=== PATIENT | male | born 1965 | race Caucasian/White ===

== ENCOUNTER 2017-01-13 08:49 | Emergency (ER) | payer OTHER ==
[~2017-01-13] VITALS: Ht 180.3 cm; Wt 99.8 kg
[~2017-01-13 08:49] MED LIST: ALBU17IN2 IN; ASPI1TAB PO; FLOM5CAP PO; LEVA500T OR; NORV5TAB OR; OXYB5TA PO; PRIL20CA OR; SM I100T OR
[2017-01-13] MEDS ORDERED: BENA25CA4 PO (08:56)
[2017-01-13] MEDS ORDERED: ALBU17IN2 INH (08:57)
[2017-01-13] MEDS ORDERED: LEVALBUTEROL 1.25 MG/0.5 ML CONCENTRATE NEB NEB ONE ×2 (09:15→09:45)
[2017-01-13] MEDS ORDERED: ZITHTAB PO (10:35)
[2017-01-13] MEDS ORDERED: MUCI600T34 PO (10:35)
--- NOTE | 2017-01-13 10:35 | REP ---
PA and lateral chest: Comparison is 2015. The lung gama are clear. The cardiac size is normal The brenda, mediastinum, and bony thorax are unremarkable. Impression: Negative PA and lateral chest. There is no interval change Signed by Rachid Carr MD 01/13/2017 10:27 A
[2017-01-13] MEDS ORDERED: ALBU17IN INH (10:41)
[2017-01-13 10:43] VITALS: BP 142/88
[2017-01-13] MEDS ORDERED: PRED20TA PO (10:43)
[2017-01-13] MEDS ORDERED: AZITHROMYCIN 250 MG TAB PO ONE (10:45)
== END 2017-01-13 10:45 | disposition home or self-care (01) ==
LOC: M ED 09:29
DX: J01.90 Acute sinusitis, unspecified (principal); J20.9 Acute bronchitis, unspecified; J45.909 Unspecified asthma, uncomplicated; Z79.82 Long term (current) use of aspirin

== ENCOUNTER 2018-05-09 19:19 | Emergency (ER) | payer OTHER ==
[2018-05-09] MEDS: diazePAM 10 MG TAB PO (20:06)
== END 2018-05-09 20:14 | disposition home or self-care (01) ==
LOC: M ED 19:19
DX: S39.012A Strain of muscle, fascia and tendon of lower back, initial encounter (principal); X58.XXXA Exposure to other specified factors, initial encounter; Y92.89 Other specified places as the place of occurrence of the external cause; J45.909 Unspecified asthma, uncomplicated
CPT/HCPCS: 99282

== ENCOUNTER 2018-08-21 08:54 | Emergency (ER) | payer OTHER ==
[2018-08-21] MEDS: NORCO, ANEXSIA 5/325MG TABLET (HYDROcodone/ACETAMINOPHEN) PO (09:58)
== END 2018-08-21 11:13 | disposition home or self-care (01) ==
LOC: M ED 08:54
DX: M17.11 Unilateral primary osteoarthritis, right knee (principal)
CPT/HCPCS: 73564

== ENCOUNTER 2018-09-29 12:11 | Emergency (ER) | payer OTHER ==
[2018-09-29] MEDS: NORCO, ANEXSIA 5/325MG TABLET (HYDROcodone/ACETAMINOPHEN) PO (12:44)
[2018-09-29] MEDS: METHOCARBAMOL 500 MG TAB PO (12:44)
== END 2018-09-29 13:12 | disposition home or self-care (01) ==
LOC: M ED 12:11
DX: S39.012A Strain of muscle, fascia and tendon of lower back, initial encounter (principal); M54.31 Sciatica, right side; X58.XXXA Exposure to other specified factors, initial encounter; Y92.89 Other specified places as the place of occurrence of the external cause; J45.909 Unspecified asthma, uncomplicated; Z79.899 Other long term (current) drug therapy
CPT/HCPCS: 99282

== ENCOUNTER → 2018-10-27 | Outpatient (CLI) | payer OTHER ==
[~2018-10-27] MED LIST changes: +ALBU17IN INH; +ALBU17IN2 INH; +BENA25CA4 PO; +CYCL10TA PO; +FLOM0.4C39 PO; -FLOM5CAP PO; +IBUP-1022 PO; +IBUP80TA PO; +MELO7.5T7; +MUCI600T37 PO; +NORCOTAB PO; -OXYB5TA PO; +OXYB5TAB10 PO; +PRED20TA PO; +ROBA500T PO; +ZITHTAB PO
[2018-10-27 09:44] LABS: BASO # 0.1 10^3/uL (0.0-0.2); BASO % 1.3 % (0.0-1.0); EOS # 0.5 10^3/uL (0.0-0.50); EOS % 6.6 % (0.0-3.0); HEMATOCRIT 48.9 % (42.0-52.0); HEMOGLOBIN 16.4 g/dl (13.5-17.5); LYMPH # 2.3 10^3/uL (1.5-4.5); LYMPH % 30.2 % (24.0-44.0); MEAN CORPUSCULAR HEMOGLOBIN 30.4 pg (27.0-33.0); MEAN CORPUSCULAR HGB CONC 33.5 g/dl (32.0-36.5); MEAN CORPUSCULAR VOLUME 90.6 fl (80.0-96.0); MONO # 0.5 10^3/uL (0.0-0.8); MONO % 6.9 % (0.0-5.0); NEUTROPHILS # 4.1 10^3/uL (1.8-7.7); NEUTROPHILS % 54.6 % (36.0-66.0); PLATELET COUNT, AUTOMATED 222 10^3/uL (150-450); WHITE BLOOD COUNT 7.4 10^3/uL (4.0-10.0)
[2018-10-27 10:15] LABS: HEMOGLOBIN A1c 5.8 %
[2018-10-27 10:19] LABS: ALBUMIN 4.2 GM/DL (3.2-5.2); ALT/SGPT 38 U/L (12-78); BILIRUBIN,TOTAL 0.6 MG/DL (0.2-1.0); BLOOD UREA NITROGEN 14 MG/DL (7-18); CALCIUM LEVEL 9.4 MG/DL (8.5-10.1); CARBON DIOXIDE LEVEL 32 MEQ/L (21-32); CHLORIDE LEVEL 107 MEQ/L (98-107); CHOLESTEROL LEVEL 184 MG/DL (<200); CHOLESTEROL RISK RATIO 3.345 (<5); CREATININE FOR GFR 1.15 MG/DL (0.70-1.30); GLOMERULAR FILTRATION RATE > 60.0 (>56); GLUCOSE, FASTING 87 MG/DL (70-100); HDL CHOLESTEROL 55 MG/DL (>40); LDL CHOLESTEROL 115 MG/DL (<100); MAGNESIUM LEVEL 2.3 MG/DL (1.8-2.4); NON-HDL-C 129 MG/DL; POTASSIUM SERUM 4.7 MEQ/L (3.5-5.1); SODIUM LEVEL 142 MEQ/L (136-145); TOTAL 25(OH) VITAMIN D 24.1 NG/ML (30.0-100.0); TRIGLYCERIDES LEVEL 69 MG/DL (<150)
[2018-10-27 10:49] LABS: MALB URINE SIEMENS 7.2 MG/L; MAU/CREAT RATIO 6.7 MCG/MG (0.0-30.0)
--- NOTE | 2018-10-28 02:50 | REP ---
Clinical: Hypertension and chronic medical renal disease. Technique: Flor scale and color Doppler evaluation of the kidneys and renal vasculature using curved array transducer. Findings: The kidneys are essentially normal in contour, size and reniform shape without hydronephrosis, nephrolithiasis, cystic or renal mass lesion. Mildly increased parenchymal echogenicity is consistent with the given history of chronic medical renal disease. Right kidney measures 11.6 x 5.0 x 5.2 cm . Left kidney measures 11.0 x 4.1 x 4.6 cm . Bladder is incompletely distended and grossly normal by current evaluation. Bladder currently measures 7.4 x 7.2 x 7.6 cm (211 ml). Prostate measures 3.1 x 3.0 x 4.6 cm (22 ml). Color Doppler evaluation of the renal vasculature demonstrates normal arterial wave patterns, velocities, renal aortic ratios, resistive indices and the acceleration time. No sonographic evidence for renal arterial stenosis noted. Renal vein is patent. Right Kidney: Peak arterial velocity: 77.1 cm/sec . Renal aortic ratio: 0.95 . Resistive indices: 0.65 - 0.71 . Acceleration times: 0.044 - 0.059 . Left kidney: Peak arterial velocity: 55.8 cm/sec . Renal aortic ratio: 0.68 . Resistive indices: 0.70 - 0.71 . Acceleration times: 0.029 - 0.051 . Impression: 1. Minimally increased parenchymal echogenicity consistent with the given history of chronic medical renal disease. No hydronephrosis. 2. No sonographic evidence to suggest significant renal arterial stenosis. Electronically Signed by Emanuel Krishna MD 10/28/2018 02:41 A
== END ==
LOC: M RAD 08:41
PROVIDERS: ATTEND Nurse Practitioner Family
DX: N18.9 Chronic kidney disease, unspecified (principal)

== ENCOUNTER → 2018-11-23 | Outpatient (CLI) | payer OTHER ==
--- NOTE | 2018-11-23 10:23 | ECGEPIP ---
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
== END ==
LOC: M EKG 09:13
PROVIDERS: ATTEND Orthopaedic Surgery
DX: Z01.818 Encounter for other preprocedural examination (principal); I10 Essential (primary) hypertension; R00.1 Bradycardia, unspecified

== ENCOUNTER → 2018-12-31 | Outpatient (CLI) | payer OTHER ==
--- NOTE | 2018-12-31 17:36 | REP ---
MR LUMBAR SPINE WITHOUT CONTRAST: HISTORY: Degenerative disc disease. Decreased signal intensity on T2-weighted images is present in the L2-3 through L5-S1 intervertebral discs. The discs are decreased in height. These findings are consistent with disc degeneration. There is no disc bulge or herniation at the L1-2 level. The L1 nerves exit the neural foramina without compression. A diffuse disc bulge is present at the L2-3 level. There is hypertrophy of the ligamenta flava and posterior articulating facets. These findings produce minimal central canal stenosis. The L2 nerves exit the neural foramina without compression. A diffuse disc bulge is present at the L3-4 level. There is hypertrophy of the ligamenta flava and posterior articulating facets. These findings produce mild central canal stenosis. The L3 nerves exit the neural foramina without compression. A diffuse disc bulge is present at the L4-5 level. There is hypertrophy of the ligamenta flava and posterior articulating facets. These findings produce minimal central canal stenosis. The L4 nerves exit the neural foramina without compression. A diffuse disc bulge and small central disc protrusion are present at the L5-S1 level. The disc protrusion abuts the thecal sac. There is hypertrophy of the posterior articulating facets. The L5 nerves exit the neural foramina without compression. The conus medullaris is normal in appearance terminating at the level of the L1-2 intervertebral disc. Increased signal intensity on T2-weighted images is present in the endplates of the L1 through S1 vertebral bodies. This represents degenerative change. IMPRESSION: 1. Minimal central canal stenosis at the L2-3 and L4-5 levels secondary to disc bulge, ligamentous and facet hypertrophy. 2. Mild central canal stenosis at the L3-4 level secondary to disc bulge, ligamentous and facet hypertrophy. 3. Diffuse disc bulge and small central disc protrusion at the L5-S1 level. The disc protrusion abuts the thecal sac. Electronically Signed by Steven Henriquez MD 01/03/2019 08:03 A
== END ==
LOC: M PLARAD 13:49
PROVIDERS: ATTEND Nurse Practitioner Family
DX: M51.27 Other intervertebral disc displacement, lumbosacral region (principal); M51.26 Other intervertebral disc displacement, lumbar region; M24.28 Disorder of ligament, vertebrae; M48.061 Spinal stenosis, lumbar region without neurogenic claudication

== ENCOUNTER → 2019-01-13 | Outpatient (REF) | payer OTHER ==
[~2019-01-13] MED LIST changes: -ASPI1TAB PO; +ASPI81TA26 PO; +HYDR-3715 PO; -NORCOTAB PO
[2019-01-13 14:28] LABS: ALBUMIN 4.5 GM/DL (3.2-5.2); ALT/SGPT 47 U/L (12-78); BILIRUBIN,TOTAL 0.5 MG/DL (0.2-1.0); BLOOD UREA NITROGEN 18 MG/DL (7-18); CALCIUM LEVEL 9.1 MG/DL (8.5-10.1); CARBON DIOXIDE LEVEL 26 MEQ/L (21-32); CHLORIDE LEVEL 108 MEQ/L (98-107); CREATININE FOR GFR 1.22 MG/DL (0.70-1.30); GLOMERULAR FILTRATION RATE > 60.0 (>56); GLUCOSE, FASTING 98 MG/DL (70-100); POTASSIUM SERUM 4.8 MEQ/L (3.5-5.1); SODIUM LEVEL 140 MEQ/L (136-145); THYROID STIMULATING HORMONE 0.968 uIU/ML (0.358-3.740); TOTAL PROTEIN 7.2 GM/DL (6.4-8.2); VITAMIN B12 LEVEL 633 PG/ML
[2019-01-15 15:33] LABS: ANTINUCLEAR ANTIBODIES DIRECT Negative (Negative); CERULOPLASMIN 19.1 mg/dL (16.0-31.0); COPPER PLASMA 68 ug/dL (72-166)
== END ==
LOC: M LABNEURO 08:41
PROVIDERS: ATTEND Psychiatry & Neurology Neurology
DX: R25.1 Tremor, unspecified (principal)

== ENCOUNTER 2020-12-02 11:41 | Emergency (ER) | payer OTHER ==
[~2020-12-02] VITALS: Ht 182.9 cm; Wt 105.3 kg
[~2020-12-02 11:41] MED LIST changes: +CYCL-707 PO; -CYCL10TA PO
--- OUTSIDE RECORDS SUMMARY | 2020-12-02 11:47 | CCD ---
Author Author [facility] Organization [facility] Address Unknown Phone Unavailable Care Team Providers Care Glassie Name Role Phone Katelyn Harper Unavailable Unavailable Katelyn Harper Unavailable Unavailable Katelyn Harper Unavailable Unavailable Katelyn Harper Unavailable Unavailable Katelyn Harper Unavailable Unavailable Katelyn Harper PA Unavailable Unavailable Katelyn Harper Unavailable Unavailable Katelyn Harper PA Unavailable Unavailable Katelyn Harper PA Unavailable Unavailable Katelyn Harper PA Unavailable Unavailable Katelyn Harper PA Unavailable Unavailable Katelyn Harper PA Unavailable Unavailable Katelyn Harper PA Unavailable Unavailable Katelyn Harper PA Unavailable Unavailable Katelyn Harper PA Unavailable Unavailable Katelyn Harper PA Unavailable Unavailable Katelyn Harper PA Unavailable Unavailable Katelyn Harper PA Unavailable Unavailable Katelyn Harper Unavailable Unavailable Katelyn Harper Unavailable Unavailable Katelyn Harper PA Unavailable Unavailable Katelyn Harper Unavailable Unavailable Katelyn Harper PA Unavailable Unavailable Katelyn Harper PA Unavailable Unavailable Katelyn Harper Unavailable Unavailable Katelyn Harper Unavailable Unavailable Katelyn Harper Unavailable Unavailable Re-disclosure Warning The records that you are about to access may contain information from federally-assisted alcohol or drug abuse programs. If such information is present, then the following federally mandated warning applies: This information has been disclosed to you from records protected by federal confidentiality rules (42 CFR part 2). The federal rules prohibit you from making any further disclosure of this information unless further disclosure is expressly permitted by the written consent of the person to whom it pertains or as otherwise permitted by 42 CFR part 2. A general authorization for the release of medical or other information is NOT sufficient for this purpose. The Federal rules restrict any use of the information to criminally investigate or prosecute any alcohol or drug abuse patient.The records that you are about to access may contain highly sensitive health information, the redisclosure of which is protected by Article 27-F of the [facility] Public Health law. If you continue you may have access to information: Regarding HIV / AIDS; Provided by facilities licensed or operated by the [facility] Office of Mental Health; or Provided by the [facility] Office for People With Developmental Disabilities. If such information is present, then the following [facility] mandated warning applies: This information has been disclosed to you from confidential records which are protected by state law. State law prohibits you from making any further disclosure of this information without the specific written consent of the person to whom it pertains, or as otherwise permitted by law. Any unauthorized further disclosure in violation of state law may result in a fine or care home sentence or both. A general authorization for the release of medical or other information is NOT sufficient authorization for further disc losure. Family History Family Member Name Family Member Gender Family Member Status Date o f Status Description Data Source(s) Unknown Unknown Problem [facility] ([facility]) Unknown Male Problem [facility] ([facility]) Unknown Female Problem [facility] ([facility]) Encounters Encounter Providers Location Date Indications Data Source(s ) Outpatient Attender: Rakesh ALTAMIRANO Physical Therapy 02:45:00 PM EDT [facility] ([facility]) Outpatient Attender: Rakesh ALTAMIRANO Physical Therapy 01:45:00 PM EST [facility] ([facility]) Outpatient Attender: Barratt Harper PA Physical Therapy 02:15:00 PM EST [facility] ([facility]) Medications Medication Brand Name Start Date Product Form Dose Route Admi nistrative Instructions Pharmacy Instructions Status Indications Reaction Description Data Source(s) Cephalexin 500 MG Oral Capsule CEPHALEXIN 06/05/2020 12:00:00 AM EDT capsule 15 TAKE ONE CAPSULE BY MOUTH THREE TIMES A DAY FOR 5 DAYS TAKE ONE CAPSULE BY MOUTH THREE TIMES A DAY FOR 5 DAYS SOLD: 06/05/2020 [facility] No Active Medications 04/23/2020 12:00:00 AM EDT active [facility] ([facility]) 4 mg 11/24/2019 12:00:00 AM EST tablet 60 TAKE ONE TABLET BY MOUTH THREE TIMES A DAY TAKE ONE TABLET BY MOUTH THREE TIMES A DAY SOLD: 11/28/2019 [facility] tizanidine 4 MG Oral Tablet [Zanaflex] Zanaflex 11/23/2019 12:00:00 AM EST ORAL completed [facility] 500 mg 10/27/2019 12:00:00 AM EST tablet 20 TAKE ONE TABLET BY MOUTH TWICE A DAY FOR 10 DAYS TAKE ONE TABLET BY MOUTH TWICE A DAY FOR 10 DAYS SOLD: 11/01/2019 [facility] Insurance Providers Payer name Policy type / Coverage type Policy ID Covered green party ID Covered green party's relationship to ram Policy Ram Plan Information [facility] [id number] [employer] () Workers Compensation SS# [id number] Self SS# [id number] [facility] Community Plan Commercial [id number] Self [id number] [employer] () Workers Compensation SS# Self SS# [id number] [facility]-Medicaid [id number] [employer] () Workers Compensation SS# [id number] Self SS# [id number] ANS-Medicaid [id number] ANS-Medicaid [id number] ANSI-Medicaid [id number] ANSI-Medicaid [id number] ANSI-Medicaid [id number] [employer]) Workers Compensation SS# [id number] Self SS# [employer]) Workers Compensation SS# Self SS# [employer]) Workers Compensation SS# [id number] Self SS# [id number] ANSI-Medicaid [id number] [facility] [id number] S [id number] ANSI-Medicaid [id number] [facility] I [id number] Self [id number] [facility] Health Maintenance Organization (HMO) [id number] Self [id number] [employer]) Workers Compensation SS# [id number] Self SS# [id number] [employer]) Workers Compensation SS# Self SS# [id number] [employer]) Workers Compensation SS# [id number] Self SS# [id number] [facility] XIX [id number] 18 [id number] [facility] Health Maintenance Organization (HMO) [id number] Self [id number] [employer] [id number] SP [id number] OTHER WORKERS COMPENSATION [id number] SP [id number] [employer] P [id number] S [id number] SELF PAY UNAVAILABLE SP UNAVAILA BLE SELF PAY P UNAVAILABLE UNAVAILA BLE Surgeries/Procedures Procedure Description Date Indications Data Source(s) ARTHROCENTESIS ASPIR&/INJECTION MAJOR JT/BURSA 020 12:00:00 AM EDT [facility] ([facility] X-Ray Spine Lumbosacral Complete Inc Bending Views Min Of 6 11/23/2019 12:00:00 AM EST [facility] ([facility] MRI Lower Extremity Any Joint 11/11/2019 12:00:[address] [facility] ([facility] ) Vital Signs ID Date Data Source UNK Name Value Range Interpretation Code Description Data Source(s) Body mass index (BMI) [Ratio] 31.5 kg/m2 31.5 k g/m2 [facility] ([facility] Body weight 221.12 [lb_av] 221.12 [lb_av] MEDEN T ([facility] ) Body height 70.25 [in_i] 70.25 [in_i] [facility] ([facility] 5'10.25" Body temperature 97.6 [degF] 97.6 [degF] [facility] ([facility] )
[2020-12-02] MEDS ORDERED: CLAR5TAB11 PO (11:57)
--- OUTSIDE RECORDS SUMMARY | 2020-12-02 12:30 | CCD ---
Author Author [facility] Organization [facility] Address Unknown Phone Unavailable Care Team Providers Care Shift Superintendent Name Role Phone Katelyn Harper Unavailable Unavailable [...] is protected by Article 27-F of the [facility] Public Health law. If you continue you may have access to information: Regarding HIV / AIDS; Provided by facilities licensed or operated by the [facility] Office of Mental Health; or Provided by the [facility] Office for People With Developmental Disabilities. If such information is present, then the following [facility] mandated warning applies: This information has been [...] law may result in a fine or residential sentence or both. A general authorization for the release of medical or other information is NOT sufficient authorization for further disc losure. Family History Family Member Name Family Member Gender Family Member Status Date o f Status Description Data Source(s) Unknown Unknown Problem [facility] ([facility]) Unknown Male Problem [facility] ([facility]) Unknown Female Problem [facility] ([facility]) Encounters Encounter Providers Location Date Indications Data Source(s ) Outpatient Attender: Rakesh ALTAMIRANO Physical Therapy 02:45:00 PM EDT [facility] ([facility]) Outpatient Attender: Rakesh ALTAMIRANO Physical Therapy 01:45:00 PM EST [facility] ([facility]) Outpatient Attender: Rakesh ALTAMIRANO Physical Therapy 02:15:00 PM EST [facility] ([facility]) Medications Medication Brand [...] Medications 04/23/2020 12:00:00 AM EDT active [facility] ([facility]) 4 mg 11/24/2019 12:00:00 AM EST tablet 60 TAKE ONE TABLET BY MOUTH THREE TIMES A DAY TAKE ONE TABLET BY MOUTH THREE TIMES A DAY SOLD: 11/28/2019 [facility] tizanidine 4 MG Oral Tablet [Zanaflex] Zanaflex 11/23/2019 12:00:00 AM EST ORAL completed [facility] ([facility]) 500 mg 10/27/2019 12:00:00 AM EST tablet 20 TAKE ONE TABLET BY MOUTH TWICE A DAY FOR 10 DAYS TAKE ONE TABLET BY MOUTH TWICE A DAY FOR 10 DAYS SOLD: 11/01/2019 [facility] Insurance Providers Payer name Policy type / Coverage type Policy ID Covered republican ID Covered republican's relationship to ram Policy Ram Plan Information [facility] [place] [facility] [id number] [employer] () Workers Compensation SS# [id number] Self SS# [id number] [facility] Community Plan Commercial [id number] Self [id number] [employer] () Workers Compensation SS# Self SS# [id number] [facility]-Medicaid [id number] [employer] () Workers Compensation SS# [id number] Self SS# [id number] ANS-Medicaid [id number] ANS-Medicaid [id number] ANSI-Medicaid [id number] ANSI-Medicaid [id number] ANSI-Medicaid [id number] [employer]) Workers Compensation SS# Self SS# [employer]) Workers Compensation SS# Self SS# [employer]) Workers Compensation SS# Self SS# ANSI-Medicaid [id number] [facility] [id number] S [id number] ANSI-Medicaid [id number] [facility] I [id number] Self [id number] [facility] [place] [place] Health Maintenance Organization (HMO) [id number] Self [id number] [employer]) Workers Compensation SS# [id number] Self SS# [id number] [employer]) Workers Compensation SS# Self SS# [id number] [employer]) Workers Compensation SS# [id number] Self SS# [id number] [facility] XIX [id number] 18 [id number] [facility] Health Maintenance Organization (HMO) [id number] Self [id number] [employer] [id number] SP [id number] OTHER WORKERS COMPENSATION [id number] SP [id number] [employer] P [id number] S [id number] SELF PAY UNAVAILABLE SP UNAVAILA BLE SELF PAY P UNAVAILABLE UNAVAILA BLE Surgeries/Procedures Procedure Description Date Indications Data Source(s) ARTHROCENTESIS ASPIR&/INJECTION MAJOR JT/BURSA 020 12:00:00 AM EDT [facility] ([facility] X-Ray Spine Lumbosacral Complete Inc Bending Views Min Of 6 11/23/2019 12:00:00 AM EST [facility] ([facility] MRI Lower Extremity Any Joint 11/11/2019 12:00:[address] [facility] ([facility] ) Vital Signs ID Date Data Source UNK Name Value Range Interpretation Code Description Data Source(s) Body mass index (BMI) [Ratio] 31.5 kg/m2 31.5 k g/m2 [facility] ([facility] Body weight 221.12 [lb_av] 221.12 [lb_av] MEDEN T ([facility] ) Body height 70.25 [in_i] 70.25 [in_i] [facility] ([facility] 5'10.25" Body temperature 97.6 [degF] 97.6 [degF] [facility] ([facility] )
--- NOTE | 2020-12-02 12:52 | REP ---
INDICATION: fall, pain to ant cisneros. COMPARISON: Right knee 08/21/2018 TECHNIQUE: Four views FINDINGS: Spurs of the tibial spines and calcaneal spurs noted. Shafts of the tibia and fibula without fracture focal bone lesion. There is no radiopaque foreign body, avulsion, fracture or abnormal soft tissue calcification. IMPRESSION: No fracture or focal bone lesion. Some minor degenerative changes at the knee and heel spurs in the posterior calcaneus. No foreign body, avulsion or abnormal soft tissue calcification about the tibia and fibula. <Electronically signed by Ren Miller > 12/02/20 [id number]
[2020-12-02 12:53] LABS: BASO # 0.1 10^3/uL (0.0-0.2); BASO % 1.4 % (0.0-1.0); EOS # 0.5 10^3/uL (0.0-0.5); EOS % 6.4 % (0.0-3.0); HEMATOCRIT 52.4 % (42.0-52.0); HEMOGLOBIN 17.3 g/dl (13.5-17.5); LYMPH # 2.3 10^3/uL (1.5-5.0); LYMPH % 29.7 % (24.0-44.0); MEAN CORPUSCULAR HEMOGLOBIN 29.9 pg (27.0-33.0); MEAN CORPUSCULAR VOLUME 90.7 fl (80.0-96.0); MONO # 0.5 10^3/uL (0.0-0.8); MONO % 5.8 % (2.0-8.0); NEUTROPHILS # 4.4 10^3/uL (1.5-8.5); NEUTROPHILS % 56.3 % (36.0-66.0); PLATELET COUNT, AUTOMATED 256 10^3/uL (150-450); RED BLOOD COUNT 5.78 10^6/uL (4.30-6.10); WHITE BLOOD COUNT 7.8 10^3/uL (4.0-10.0)
[2020-12-02 13:17] VITALS: BP 210/118
[2020-12-02 13:20] LABS: ALBUMIN 4.1 GM/DL (3.2-5.2); BILIRUBIN,DIRECT 0.2 MG/DL (0.0-0.2); BILIRUBIN,TOTAL 0.7 MG/DL (0.2-1.0); CREATININE FOR GFR 1.37 MG/DL (0.70-1.30); ERYTHROCYTE SEDIMENTATION RATE 4 mm/hr (0-20); GLOMERULAR FILTRATION RATE 57.2 (>56); POTASSIUM SERUM 4.5 MEQ/L (3.5-5.1); TOTAL PROTEIN 7.5 GM/DL (6.4-8.2)
[2020-12-02 13:21] LABS: C REACTIVE PROTEIN QUANTITATIV 0.3 MG/DL (0.00-0.30)
[2020-12-02] MEDS ORDERED: LISI10TA22 PO (14:37)
[2020-12-02 14:50] VITALS: BP 170/100
--- NOTE | 2020-12-02 15:05 | REP ---
INDICATION: pain, swelling, ro clot. COMPARISON: 08/21/2018 TECHNIQUE: Multiple ultrasonographic images of the deep venous structures of the right thigh were obtained from the level of the common femoral vein to the popliteal vein in the longitudinal and transverse scan planes along with Doppler interrogation and color flow Doppler imaging. FINDINGS: There is no abnormal echogenic material seen within any of the visualized deep venous structures that would suggest acute thrombosis. Coaptation is unremarkable throughout. Doppler interrogation shows an expected response to respiratory variability and augmentation. The color flow Doppler images show what appears to be a normal vascular pattern throughout. IMPRESSION: There is no ultrasonographic evidence of deep venous thrombosis involving any of the visualized deep venous structures of the right thigh as described above. Accredited by the [employer] in Vascular Peripheral Ultrasound. <Electronically signed by Ren Miller > 12/02/20 [id number]
== END 2020-12-02 14:55 | disposition home or self-care (01) ==
LOC: M ED 11:41
DX: R79.89 Other specified abnormal findings of blood chemistry (principal); M79.604 Pain in right leg; I10 Essential (primary) hypertension; Z86.718 Personal history of other venous thrombosis and embolism

== ENCOUNTER 2022-01-11 13:43 | Emergency (ER) | payer OTHER ==
[~2022-01-11] VITALS: Ht 182.9 cm; Wt 100.0 kg
[~2022-01-11 13:43] MED LIST changes: +CLAR5TAB11 PO; +LISI10TA22 PO
[2022-01-11 15:16] LABS: BASO # 0.1 10^3/uL (0.0-0.2); BASO % 1.4 % (0.0-1.0); EOS # 0.6 10^3/uL (0.0-0.5); EOS % 7.7 % (0.0-3.0); HEMATOCRIT 50.7 % (42.0-52.0); HEMOGLOBIN 17.3 g/dl (13.5-17.5); LYMPH # 2.5 10^3/uL (1.5-5.0); MEAN CORPUSCULAR HEMOGLOBIN 30.9 pg (27.0-33.0); MEAN CORPUSCULAR HGB CONC 34.1 g/dl (32.0-36.5); MEAN CORPUSCULAR VOLUME 90.5 fl (80.0-96.0); MONO # 0.5 10^3/uL (0.0-0.8); MONO % 5.4 % (2.0-8.0); NEUTROPHILS # 4.6 10^3/uL (1.5-8.5); NEUTROPHILS % 55.3 % (36.0-66.0); PLATELET COUNT, AUTOMATED 234 10^3/uL (150-450); WHITE BLOOD COUNT 8.3 10^3/uL (4.0-10.0)
[2022-01-11 15:25] LABS: INR 0.92; PROTHROMBIN TIME 12.8 SECONDS (12.7-14.5)
[2022-01-11 15:26] LABS: PARTIAL THROMBOPLASTIN TIME 32.8 SECONDS (25.9-37.0)
[2022-01-11 15:46] LABS: HEMOGLOBIN A1c 5.7 %
[2022-01-11 15:48] LABS: BILIRUBIN,DIRECT 0.2 MG/DL (0.0-0.2); BILIRUBIN,TOTAL 0.6 MG/DL (0.2-1.0); TOTAL PROTEIN 7.1 GM/DL (6.4-8.2)
[2022-01-11] MEDS ORDERED: LISI10TA24 PO (15:59)
[2022-01-11] MEDS ORDERED: NEUR100C PO (15:59)
[2022-01-11 16:07] VITALS: BP 166/93
== END 2022-01-11 16:16 | disposition home or self-care (01) ==
LOC: M ED 13:43
DX: G57.93 Unspecified mononeuropathy of bilateral lower limbs (principal); I10 Essential (primary) hypertension; R22.43 Localized swelling, mass and lump, lower limb, bilateral; M54.9 Dorsalgia, unspecified; Z87.442 Personal history of urinary calculi; J45.909 Unspecified asthma, uncomplicated; Z79.899 Other long term (current) drug therapy

== ENCOUNTER 2023-01-02 08:28 | Emergency (ER) | payer OTHER ==
[~2023-01-02] VITALS: Ht 182.9 cm; Wt 106.8 kg
[~2023-01-02 08:28] MED LIST changes: +LISI10TA24 PO; +NEUR100C PO
[2023-01-02] MEDS ORDERED: ISOVUE-370 76% 100ML VIAL As Ordered ONE (09:19)
[2023-01-02 09:25] VITALS: BP 252/124
[2023-01-02 09:49] LABS: BASO # 0.1 10^3/uL (0.0-0.2); EOS # 0.4 10^3/uL (0.0-0.5); EOS % 5.9 % (0.0-3.0); HEMATOCRIT 51.5 % (42.0-52.0); HEMOGLOBIN 17.4 g/dl (13.5-17.5); LYMPH # 2.1 10^3/uL (1.5-5.0); LYMPH % 32.8 % (24.0-44.0); MEAN CORPUSCULAR HEMOGLOBIN 30.9 pg (27.0-33.0); MEAN CORPUSCULAR HGB CONC 33.8 g/dl (32.0-36.5); MEAN CORPUSCULAR VOLUME 91.3 fl (80.0-96.0); MONO # 0.4 10^3/uL (0.0-0.8); MONO % 6.5 % (2.0-8.0); NEUTROPHILS # 3.4 10^3/uL (1.5-8.5); NEUTROPHILS % 52.5 % (36.0-66.0); PLATELET COUNT, AUTOMATED 243 10^3/uL (150-450); RED BLOOD COUNT 5.64 10^6/uL (4.30-6.10); WHITE BLOOD COUNT 6.5 10^3/uL (4.0-10.0)
[2023-01-02 10:00] LABS: INR 0.9; PROTHROMBIN TIME 12.3 SECONDS (12.5-14.5)
[2023-01-02 10:01] LABS: PARTIAL THROMBOPLASTIN TIME 30.8 SECONDS (24.8-34.2)
[2023-01-02] MEDS ORDERED: POTASSIUM CHLORIDE 10MEQ SR TABLET PO ONE (10:05)
[2023-01-02] MEDS ORDERED: FUROSEMIDE 40MG/4ML VIAL IV ONE (10:05)
[2023-01-02 10:12] LABS: LIPASE 41 U/L (12-53)
[2023-01-02 10:13] LABS: CK-MB VALUE MASS 2.2 NG/ML (<3.6)
[2023-01-02 10:15] LABS: ALBUMIN 3.9 G/DL (3.2-5.2); ALKALINE PHOSPHATASE 88 U/L (46-116); ALT/SGPT 43 U/L (7.0-40); AST/SGOT 26 U/L (<34); BILIRUBIN,DIRECT 0.2 MG/DL (<0.4); BILIRUBIN,TOTAL 0.7 MG/DL (0.3-1.2); BLOOD UREA NITROGEN 18 MG/DL (9-23); CARBON DIOXIDE LEVEL 28 MMOL/L (20-31); CHLORIDE LEVEL 104 MMOL/L (98-107); CREATININE FOR GFR 1.21 MG/DL (0.70-1.30); GLOMERULAR FILTRATION RATE > 60.0 (>56); GLUCOSE, FASTING 85 MG/DL (60-100); MB/CK RELATIVE INDEX 1.36 (< OR =4); POTASSIUM SERUM 4.2 MMOL/L (3.5-5.1); SODIUM LEVEL 138 MMOL/L (136-145); TOTAL PROTEIN 6.9 G/DL (5.7-8.2)
[2023-01-02 10:18] LABS: THYROID STIMULATING HORMONE 1.231 uIU/ML (0.55-4.78)
[2023-01-02 10:20] LABS: CPK CREATINE PHOSPHOKINASE 161 U/L (46-171); MB/CK RELATIVE INDEX 1.24 (< OR =4)
[2023-01-02 10:25] LABS: RSV AMPLIFICATION NEGATIVE (NEGATIVE)
[2023-01-02] MEDS ORDERED: LOSARTAN 50MG TABLET PO ONE (11:25)
[2023-01-02 11:43] VITALS: BP 222/111
[2023-01-02] MEDS ORDERED: AMLO1TAB25 PO (14:33)
[2023-01-02] MEDS ORDERED: LOSA100T45 PO (14:33)
[2023-01-02 15:04] VITALS: BP 168/92
== END 2023-01-02 15:07 | disposition home or self-care (01) ==
LOC: M ED 08:28
DX: I10 Essential (primary) hypertension (principal); M25.562 Pain in left knee; R93.89 Abnormal findings on diagnostic imaging of other specified body structures; Z87.442 Personal history of urinary calculi
CPT/HCPCS: 70450; 70496; 70498; 70544; 70551; 71045; 71275; 72110; 73564; 80047; 80048; 80076; 82550; 82553; 83690; 83880; 84439; 84443; 85025; 85610; 85730; 87040; 87077; 87186; 87631; 93005; 93041; 94760; 96374; 99285; J1940; Q9967

== ENCOUNTER → 2023-02-09 | Outpatient (CLI) | payer OTHER ==
[~2023-02-09] MED LIST changes: +AMLO1TAB25 PO; +LOSA100T45 PO
== END ==
LOC: M SOG 08:14
PROVIDERS: ATTEND Orthopaedic Surgery
DX: M25.561 Pain in right knee (principal)

== ENCOUNTER → 2023-02-13 | Outpatient (CLI) | payer OTHER ==
[~2023-02-13] MED LIST changes: -LOSA100T45 PO; +LOSA100T46 PO
== END ==
LOC: M PLARAD 12:04
PROVIDERS: ATTEND Physician Assistant
DX: K75.81 Nonalcoholic steatohepatitis (NASH) (principal)

== ENCOUNTER → 2023-03-18 | Outpatient (CLI) | payer OTHER | LOC: M CARPUL 14:41 | PROVIDERS: ATTEND Physician Assistant | DX: J45.909 Unspecified asthma, uncomplicated (principal) ==

== ENCOUNTER 2023-06-04 16:12 | Emergency (ER) | payer OTHER ==
[~2023-06-04] VITALS: Ht 182.9 cm; Wt 106.9 kg
[2023-06-04] MEDS ORDERED: VENTAER (16:20)
[2023-06-04] MEDS ORDERED: ACETAMINOPHEN 500 MG TAB PO ONE (20:20)
[2023-06-04 21:27] LABS: BASO # 0.1 10^3/uL (0.0-0.2); BASO % 1.2 % (0.0-1.0); EOS # 0.3 10^3/uL (0.0-0.5); HEMOGLOBIN 16.8 g/dl (13.5-17.5); LYMPH # 3.1 10^3/uL (1.5-5.0); LYMPH % 33.7 % (24.0-44.0); MEAN CORPUSCULAR HEMOGLOBIN 30.3 pg (27.0-33.0); MEAN CORPUSCULAR HGB CONC 33.6 g/dl (32.0-36.5); MEAN CORPUSCULAR VOLUME 90.3 fl (80.0-96.0); MONO # 0.5 10^3/uL (0.0-0.8); MONO % 5.8 % (2.0-8.0); NEUTROPHILS # 5.1 10^3/uL (1.5-8.5); NEUTROPHILS % 55.9 % (36.0-66.0); PLATELET COUNT, AUTOMATED 246 10^3/uL (150-450); RED BLOOD COUNT 5.54 10^6/uL (4.30-6.10); WHITE BLOOD COUNT 9.1 10^3/uL (4.0-10.0)
[2023-06-04 22:13] LABS: CK-MB VALUE MASS 1.6 NG/ML (<3.6); MB/CK RELATIVE INDEX 0.78 (< OR =4)
[2023-06-04] MEDS ORDERED: IBUP-1022 PO (22:29)
[2023-06-04 22:40] VITALS: BP 195/97; TEMP 98.3; O2SAT 98
== END 2023-06-04 23:03 | disposition home or self-care (01) ==
LOC: M ED 16:12
DX: S20.214A Contusion of middle front wall of thorax, initial encounter (principal); J45.909 Unspecified asthma, uncomplicated; I10 Essential (primary) hypertension; Z87.442 Personal history of urinary calculi; V49.50XA Passenger injured in collision with unspecified motor vehicles in traffic accident, initial encounter; Z79.52 Long term (current) use of systemic steroids; Z79.811 Long term (current) use of aromatase inhibitors; Z79.899 Other long term (current) drug therapy

== ENCOUNTER 2024-07-16 12:17 | Emergency (ER) | payer OTHER ==
[~2024-07-16] VITALS: Ht 182.9 cm; Wt 105.3 kg
[~2024-07-16 12:17] MED LIST changes: -OXYB5TAB10 PO; +OXYB5TAB14 PO; +VENTAER
[2024-07-16 12:57] LABS: BASO # 0.1 10^3/uL (0.0-0.2); BASO % 1.3 % (0.0-1.0); EOS # 0.4 10^3/uL (0.0-0.5); EOS % 4.5 % (0.0-3.0); HEMATOCRIT 49.3 % (42.0-52.0); HEMOGLOBIN 16.9 g/dl (13.5-17.5); LYMPH # 2.6 10^3/uL (1.5-5.0); LYMPH % 28.5 % (24.0-44.0); MEAN CORPUSCULAR HGB CONC 34.3 g/dl (32.0-36.5); MEAN CORPUSCULAR VOLUME 90.3 fl (80.0-96.0); MONO # 0.5 10^3/uL (0.0-0.8); MONO % 5.8 % (2.0-8.0); NEUTROPHILS # 5.4 10^3/uL (1.5-8.5); NEUTROPHILS % 59.6 % (36.0-66.0); PLATELET COUNT, AUTOMATED 211 10^3/uL (150-450); RED BLOOD COUNT 5.46 10^6/uL (4.30-6.10)
[2024-07-16 13:23] LABS: BLOOD UREA NITROGEN 15 MG/DL (9-23); CALCIUM LEVEL 9.6 MG/DL (8.5-10.1); CARBON DIOXIDE LEVEL 27 MMOL/L (20-31); CHLORIDE LEVEL 103 MMOL/L (98-107); CK-MB VALUE MASS 2.2 NG/ML (<3.6); CREATININE FOR GFR 1.26 MG/DL (0.70-1.30); GLOMERULAR FILTRATION RATE > 60.0 (>56); GLUCOSE, FASTING 83 MG/DL (60-100); POTASSIUM SERUM 4.4 MMOL/L (3.5-5.1); SODIUM LEVEL 136 MMOL/L (136-145)
[2024-07-16 13:24] LABS: CPK CREATINE PHOSPHOKINASE 185 U/L (46-171); MB/CK RELATIVE INDEX 1.18 (< OR =4)
[2024-07-16 13:30] VITALS: BP 176/97
[2024-07-16] MEDS: LOSARTAN 50MG TABLET PO ONE (13:30)
[2024-07-16] MEDS: FUROSEMIDE 40MG/4ML VIAL IV ONE (13:30)
[2024-07-16] MEDS: ASPIRIN 81MG CHEW TABLET PO ONE (13:30)
[2024-07-16 14:24] LABS: CK-MB VALUE MASS 2.3 NG/ML (<3.6)
[2024-07-16 14:26] LABS: MB/CK RELATIVE INDEX 1.37 (< OR =4)
[2024-07-16] MEDS ORDERED: ISOVUE-370 76% 100ML VIAL As Ordered ONE (17:24)
[2024-07-16 18:24] VITALS: TEMP 96.7
[2024-07-16] MEDS ORDERED: PROT1TAB2 PO (20:47)
[2024-07-16] MEDS ORDERED: LOSA100T46 PO (20:47)
[2024-07-16] MEDS ORDERED: AMLO1TAB25 PO (20:47)
[2024-07-16] MEDS: PANTOPRAZOLE 40MG VIAL IV ONE (20:57)
[2024-07-16 21:02] VITALS: BP 164/91; O2SAT 97
== END 2024-07-16 21:08 | disposition home or self-care (01) ==
LOC: M ED 12:17
DX: K20.90 Esophagitis, unspecified without bleeding (principal); I10 Essential (primary) hypertension; E78.5 Hyperlipidemia, unspecified; K21.9 Gastro-esophageal reflux disease without esophagitis; J45.909 Unspecified asthma, uncomplicated; F10.10 Alcohol abuse, uncomplicated; Z79.51 Long term (current) use of inhaled steroids; Z79.1 Long term (current) use of non-steroidal anti-inflammatories (NSAID); Z79.899 Other long term (current) drug therapy
CPT/HCPCS: 71045; 71275; 80048; 82550; 82553; 83880; 84484; 85025; 93005; 93041; 94760; 96374; 96375; 99285; J1940; J2470; Q9967

== ENCOUNTER → 2024-09-22 | Outpatient (REF) | payer OTHER ==
[~2024-09-22] MED LIST changes: +PROT1TAB2 PO
[2024-09-23 10:27] LABS: ALBUMIN 3.9 G/DL (3.2-5.2); ALKALINE PHOSPHATASE 89 U/L (40-129); ALT/SGPT 37 U/L (7.0-40); AST/SGOT 26 U/L (<34); BILIRUBIN,TOTAL 0.8 MG/DL (0.3-1.2); BLOOD UREA NITROGEN 15 MG/DL (9-23); CALCIUM LEVEL 9.7 MG/DL (8.3-10.6); CARBON DIOXIDE LEVEL 29 MMOL/L (20-31); CHLORIDE LEVEL 103 MMOL/L (98-107); CHOLESTEROL LEVEL 201 MG/DL (<200); CHOLESTEROL RISK RATIO 4.84 (<5); CREATININE FOR GFR 1.19 MG/DL (0.70-1.30); GLOMERULAR FILTRATION RATE > 60.0 (>49); GLUCOSE, FASTING 79 MG/DL (74-106); HDL CHOLESTEROL 41.5 MG/DL (>40); LDL CHOLESTEROL 125.5 MG/DL (<100); NON-HDL-C 159.5 MG/DL; POTASSIUM SERUM 4.8 MMOL/L (3.5-5.1); SODIUM LEVEL 138 MMOL/L (136-145); TOTAL PROTEIN 7.2 G/DL (5.7-8.2); TRIGLYCERIDES LEVEL 170 MG/DL (<150)
[2024-09-23 10:30] LABS: THYROID STIMULATING HORMONE 1.155 uIU/ML (0.55-4.78); TOTAL 25(OH) VITAMIN D 6.5 NG/ML (20.0-100.0)
[2024-09-23 10:55] LABS: CREATININE, URINE 148.2 MG/DL
[2024-09-23 10:56] LABS: HIV 1&2 SCREEN NEGATIVE (NEGATIVE)
[2024-09-23 11:03] LABS: HEPATITIS C VIRUS ABY INDEX < 0.02 INDEX (<0.8)
[2024-09-23 11:31] LABS: HEMOGLOBIN A1c 5.8 % (4.0-6.0)
== END ==
LOC: M LAB REF 09:39
PROVIDERS: ATTEND Physician Assistant
DX: Z11.9 Encounter for screening for infectious and parasitic diseases, unspecified (principal); E55.9 Vitamin D deficiency, unspecified; I10 Essential (primary) hypertension; E66.9 Obesity, unspecified